=== PATIENT | female | born 1990 | race Caucasian/White ===

== ENCOUNTER 2022-07-18 18:12 | Emergency (ER) | payer OTHER, SELFPAY ==
[2022-07-18 18:20] VITALS: BP 137/86; PULSE 123; RESP 18; TEMP 37.5; O2SAT 97; BMI 21.9
--- NOTE | 2022-07-18 18:35 | ED_ITS ---
HPI - General Adult General Chief complaint: Sore Throat Stated complaint: Possible Strep Time Seen by Provider: 07/18/22 18:16 Source: patient Mode of arrival: ambulatory Limitations: no limitations History of Present Illness HPI narrative: 31-year-old female presents with a 2 day history of sore throat. Still able to eat and drink normally. No fever. No known exposures but her children are in school and daycare. They have not been ill. She tried some ibuprofen about an hour ago with no significant improvement in her symptoms. Has not tried any other home remedies. No GI symptoms, no cough, earache or nasal congestion. She does decline a COVID swab today. Requests strep swab. Past medical history she states is benign. She does take an antidepressant, fluoxetine with no recent dose adjustments. She denies any allergies. Socially reports that she is a nonsmoker, no pertinent travel. ROS is notable for the HEENT symptoms as above, otherwise denies times 12 systems. Related Data Home Medications Medication Instructions Recorded Confirmed fluoxetine 40 mg capsule 40 mg PO QAM 07/18/22 07/18/22 Allergies Allergy/AdvReac Type Severity Reaction Status Date / Time No Known Drug Allergies Allergy Verified 07/18/22 18:23 Exam Const: Vital Signs, click to edit/add: Vital Signs - 24 hr 07/18/22 18:20 Temperature 99.5 F Pulse Rate [Right Pulse Oximeter] 123 H Respiratory Rate 18 Blood Pressure [Ri ght Upper Arm] 137/86 Pulse Oximetry 97 Oxygen Delivery Me thod Room Air Documenting provider has reviewed patient's vital signs: yes Common normals: no apparent distress General appearance: cooperative, comfortable and well kempt HENMT: Common normals: normocephalic and TM's normal bilaterally Head and scalp: normocephalic Tympanic membrane: TM's normal bilaterally Other: Moist membranes, lips acyanotic. Good dentition. Tonsils are 2+ with a few concretions. No petechiae. No abnormal swelling. Eye: Common normals: conjunctivae normal General eye: normal appearance of both eyes Conjunctiva: conjunctiva(e) normal Neck & C-Spine: Common normals: full ROM Other: Mild anterior cervical and submandibular lymphadenopathy Resp: Common normals: normal respiratory effort and clear to auscultation bilaterally Effort & inspection: able to speak in complete sentences Auscultation: clear to auscultation bilaterally Cardio: Common normals: regular rate, regular rhythm, S1 normal heart sound, S2 normal heart sound and no murmurs Rate: regular rate Rhythm: regular rhythm Heart sounds: S1 normal and S2 normal Psych: Appearance: well kempt Attitude: engaged Insight: insight good Judgement: judgment good Skin: Common normals: no rashes or lesions noted General skin exam: no rashes or lesions noted Course Vital Signs Vital signs: Initial Vital Signs Temperature 99.5 F 07/18/22 18:20 Temperature Source Temporal Artery Scan 07/18/22 18:20 Pulse Rate 123 H 07/18/22 18:20 Respiratory Rate 18 07/18/22 18:20 Blood Pressure 137/86 07/18/22 18:20 Blood Pressure Mean 103 07/18/22 18:20 Blood Pressure Position Sitting 07/18/22 18:20 Pulse Oximetry 97 07/18/22 18:20 Oxygen Delivery Method Room Air 07/18/22 18:20 Vital Signs Temperature 99.5 F 07/18/22 18:20 Pulse Rate 123 H 07/18/22 18:20 Respiratory Rate 18 07/18/22 18:20 Blood Pressure 137/86 07/18/22 18:20 Pulse Oximetry 97 07/18/22 18:20 Oxygen Delivery Method Room Air 07/18/22 18:20 Temperature 99.5 F 07/18/22 18:20 Pulse Rate 123 H 07/18/22 18:20 Respiratory Rate 18 07/18/22 18:20 Blood Pressure 137/86 07/18/22 18:20 Pulse Oximetry 97 07/18/22 18:20 Oxygen Delivery Method Room Air 07/18/22 18:20 Medical Decision Making MDM Narrative Medical decision making narrative: No signs of any abscess. Suspect viral versus strep. She declines viral swab. Strep swab is collected. Offered Tylenol, she declines. Heart rate was around 90 at the time of my auscultation. She is still able to eat and drink normally, I do not recommend IV fluids at this time. Await strep swab. Update: Strep swab is negative. Discussed symptomatic care. All questions answered. Patient verbalized understanding and agreement Lab Data Lab results reviewed: Yes I reviewed the patient's lab results Labs: Lab Results 07/18/22 Range/Units 18:22 Group A Strep DNA NOT DETECTED (Not Detectd) Discharge Plan Discharge Clinical Impression: Acute viral pharyngitis Patient Disposition: Home, Self-Care Condition: Stable Instructions: Pharyngitis (ED) Additional Instructions: As we discussed, strep swab is negative. Most likely or sore throat is caused by a virus. I recommend Tylenol, ibuprofen, saltwater gargles. Contact her primary care provider if her symptoms are not improving in 5 days. Come back to the ED with any symptoms of severe dehydration, inability to swallow at all or shortness of breath. Activity Level: No Restrictions Discharge Diet: Regular Prescriptions: No Action fluoxetine 40 mg capsule 40 mg PO QAM Follow Up/Referrals: Constance Kellogg DO [Primary Care Provider] - Stand Alone Forms: [employer] Info Instructions
[2022-07-18 19:01] LABS: Strep A DNA Probe* NOT DETECTED (Not Detectd)
== END 2022-07-18 19:17 | disposition home or self-care (01) ==
PROVIDERS: Emergency Provider Family Medicine; PCP Family Medicine
DX: J02.9 Acute pharyngitis, unspecified (principal)
CPT/HCPCS: 87631; 87651; 99282

== ENCOUNTER 2022-08-13 16:36 | Outpatient (CLI) | payer OTHER, SELFPAY ==
[2022-08-13 23:43] LABS: Chlamydia DNA Amplified* NOT DETECTED (No Detected); GC DNA Amplified* NOT DETECTED (No Detected)
== END 2022-08-13 16:37 | disposition home or self-care (01) ==
PROVIDERS: PCP Family Medicine; Visit Provider Student in an Organized Health Care Education/Training Program
DX: R30.0 Dysuria (principal)
CPT/HCPCS: 81015; 87491; 87591

== ENCOUNTER 2022-10-28 15:38 | Outpatient (CLI) | payer OTHER, SELFPAY ==
[2022-10-28 23:10] LABS: Chlamydia DNA Amplified* NOT DETECTED (No Detected); GC DNA Amplified* NOT DETECTED (No Detected)
== END 2022-10-28 15:39 | disposition home or self-care (01) ==
LOC: LKVREF 15:39
PROVIDERS: PCP Family Medicine; Visit Provider Physician Assistant
DX: N89.8 Other specified noninflammatory disorders of vagina (principal); R30.0 Dysuria; Z20.2 Contact with and (suspected) exposure to infections with a predominantly sexual mode of transmission
CPT/HCPCS: 87491; 87591